=== PATIENT | female | born 1950 | race Caucasian/White ===

== ENCOUNTER 2022-01-05 13:12 | Emergency (ER) | payer MEDICARE, OTHER | END 2022-01-05 14:28 | disposition home or self-care (01) | LOC: DL.ED 13:12 | DX: S01.81XA Laceration without foreign body of other part of head, initial encounter (principal); E78.00 Pure hypercholesterolemia, unspecified; E03.9 Hypothyroidism, unspecified; E66.9 Obesity, unspecified; Z68.34 Body mass index [BMI] 34.0-34.9, adult; Z88.5 Allergy status to narcotic agent; Z88.8 Allergy status to other drugs, medicaments and biological substances; Z79.899 Other long term (current) drug therapy; Z90.710 Acquired absence of both cervix and uterus; W01.10XA Fall on same level from slipping, tripping and stumbling with subsequent striking against unspecified object, initial encounter | CPT/HCPCS: 70450; 99283 ==